=== PATIENT | female | born 1945 | race Caucasian/White ===

== ENCOUNTER 2018-05-06 17:16 | Inpatient (IN) | payer MEDICARE, OTHER ==
--- NOTE | 2018-05-06 18:28 | ED ---
General Adult HPI - General Chief complaint: Abdominal Pain Stated complaint: abd pain Time Seen by Provider: 05/06/18 17:16 Source: patient, EMS, RN notes reviewed, old records reviewed, Caregiver Mode of arrival: EMS Limitations: no limitations - History of Present Illness Initial comments: This is a 73-year-old female history of mental retardation who was seen at [facility] emergency department today with complaints of some chest discomfort. After workup that included lab work and CAT scan she was noted to have a likely left lower lobe pneumonia in addition to that a common bile duct with elevated bilirubin and liver enzymes. She was transferred here for higher level of care. Patient herself voices no complaints she is a poor historian. Information was gathered from lab work and charting was sent along with report from the paramedics brought the patient. - Related Data Home Medications Medication Instructions Recorded Confirmed Alendronate Sodium [Fosamax] 35 mg PO Q7D 05/06/18 05/06/18 Aspirin EC [Ecotrin Low Dose] 81 mg PO DAILY 05/06/18 05/06/18 Cholecalciferol [Vitamin D3] 1,000 unit PO DAILY 05/06/18 05/06/18 Cyanocobalamin (Vitamin B-12) 1,000 mcg PO DAILY 05/06/18 05/06/18 [Vitamin B-12] Levothyroxine Sodium [Synthroid] 50 mcg PO DAILY 05/06/18 05/06/18 Multivitamins, Thera [Multivitamin 1 tab PO DAILY 05/06/18 05/06/18 (formulary)] PARoxetine HCL [Paxil] 20 mg PO DAILY 05/06/18 05/06/18 Ursodiol [Actigall] 300 mg PO BID 05/06/18 05/06/18 Allergies Allergy/AdvReac Type Severity Reaction Status Date / Time No Known Allergies Allergy Verified 05/06/18 17:30 Review of Systems ROS Statement: Those systems with pertinent positive or pertinent negative responses have been documented in the HPI. ROS Other: All systems not noted in ROS Statement are negative. Limitations: ROS unobtainable due to patients medical condition Past Medical History Past Medical History: Hypertension, Liver Disease, Thyroid Disorder History of Any Multi-Drug Resistant Organisms: None Reported Additional Past Surgical History / Comment(s): cataract Past Psychological History: No Psychological Hx Reported Smoking Status: Never smoker Past Alcohol Use History: None Reported Past Drug Use History: None Reported General Exam - General Exam Comments Initial Comments: This is a well-developed asthenic appearing female who is awake alert. Limitations: no limitations General appearance: alert, in no apparent distress Head exam: Present: atraumatic, normocephalic, normal inspection Eye exam: Present: normal appearance, PERRL, EOMI. Absent: scleral icterus, conjunctival injection, periorbital swelling ENT exam: Present: normal exam, mucous membranes moist Neck exam: Present: normal inspection. Absent: tenderness, meningismus, lymphadenopathy Respiratory exam: Present: decreased breath sounds. Absent: respiratory distress, wheezes, rales, rhonchi, stridor Cardiovascular Exam: Present: normal rhythm, bradycardia, normal heart sounds. Absent: systolic murmur, diastolic murmur, rubs, gallop, clicks GI/Abdominal exam: Present: soft, normal bowel sounds. Absent: distended, tenderness, guarding, rebound, rigid Extremities exam: Present: normal inspection, full ROM, normal capillary refill. Absent: tenderness, pedal edema, joint swelling, calf tenderness Back exam: Present: normal inspection Neurological exam: Present: alert, oriented X3, CN II-XII intact Psychiatric exam: Present: normal affect, normal mood Skin exam: Present: warm, dry, intact, normal color. Absent: rash Course Vital Signs 05/06/18 05/06/18 05/06/18 17:22 17:25 18:00 Temperature 97.8 F Pulse Rate 56 L 87 Respiratory 16 16 Rate Blood Pressure 143/65 143/65 O2 Sat by Pulse 94 L 94 L 96 Oximetry Medical Decision Making - Medical Decision Making I did discuss findings with the caregiver as well as with Dr. Ansari. Patient be admitted consultation by GI. - Radiology Data Radiology results: report reviewed (I did review the imaging presented with the patient.), image reviewed Disposition Clinical Impression: Left lower lobe pneumonia, Bile duct obstruction Disposition: ADMITTED IP TO THIS [facility] Condition: Stable Referrals: Grey Dixon MD [Primary Care Provider] - 1-2 days
[2018-05-06] MEDS ORDERED: AZITHROMYCIN 500 MG in SODIUM CHLORIDE 0.9% 250 ML IVPB STA (18:43)
[2018-05-06] MEDS ORDERED: PNEUMONIA PROTOCOL UTILIZED 1 EACH MISC PO PRN (18:43)
[2018-05-06] MEDS ORDERED: ONDANSETRON 4 MG/2 ML VIAL IVP PRN (18:47)
[2018-05-06] MEDS ORDERED: HYDROmorphone 1 MG/ML 1 ML SYRINGE IVP PRN (18:47)
[2018-05-06] MEDS: SODIUM CHLORIDE 0.9% 1,000 ML IV SCH (20:10)
[2018-05-06] MEDS ORDERED: MELATONIN 3 MG TABLET PO PRN (22:59)
[2018-05-06] MEDS ORDERED: ACETAMINOPHEN TAB 325 MG TAB PO PRN (22:59)
[2018-05-06] MEDS ORDERED: LACTULOSE 20 GM/30 ML CUP PO PRN (22:59)
[2018-05-06] MEDS ORDERED: CALCIUM CARBONATE 500 MG CHEWABLE PO PRN (22:59)
[2018-05-06] MEDS ORDERED: MAGNESIUM HYDROXIDE 2,400 MG/10 ML CUP PO PRN (22:59)
[2018-05-06] MEDS ORDERED: ALPRAZolam 0.25 MG TAB PO PRN (22:59)
[2018-05-07] MEDS: URSODIOL 300 MG CAP PO SCH ×3 (00:16→20:05)
[2018-05-07] MEDS: SODIUM CHLORIDE 0.9% 1,000 ML IV SCH ×4 (01:48→23:08)
[2018-05-07] MEDS: LEVOTHYROXINE 50 MCG TAB PO SCH (05:36)
--- NOTE | 2018-05-07 05:44 | HP ---
HISTORY AND PHYSICAL DATE OF ADMISSION: 05/06/2018 DATE OF SERVICE: 05/06/2018 PRESENTING COMPLAINT: Short of breath HISTORY OF PRESENTING COMPLAINT: This is a 73-year-old patient of Visiting Physician, Dr. Dixon. Transferred here from [facility]. The patient is a very poor historian, very hard of hearing. The patient apparently had gone to her daycare and there she complained of some chest pain, some shortness of breath. No obvious abdominal pain. Chest x-ray showed questionable atelectasis versus infiltrate. Did have a CT scan of the abdomen that showed some gallstones and then dilated intrahepatic extrahepatic bile ducts and these changes also present in December of this year. EKG was sinus rhythm. AST and ALT was slightly elevated at 125 and 13. Total bilirubin was up at 2.3. The patient's white count was 10.7. The patient herself is a very poor historian, really cannot tell much. REVIEW OF SYSTEMS: CONSTITUTIONAL: Tired. HEENT: Poor hearing. RESPIRATORY: As above. Minimal cough, if any. CARDIOVASCULAR: None. GASTROINTESTINAL: None. GENITOURINARY: None. MUSCULOSKELETAL: Arthritic pain in the joints. DERMATOLOGICAL: None. HEMATOLOGIC: None. LYMPHATIC: None. PSYCHIATRY: Forgetful. NEUROLOGICAL: None reported. PAST MEDICAL HISTORY: Hypertension, liver disease, gallstones, hypothyroid. PAST SURGICAL HISTORY: Cataracts. SOCIAL HISTORY: She does not smoke or drink alcohol. Other history cannot be obtained. HOME MEDICATIONS: 1. Actigall 300 mg p.o. b.i.d. 2. Paxil 20 mg a day. 3. Multivitamin 1 tablet p.o. daily. 4. Synthroid 50 mcg a day. 5. Vitamin B12, 1000 mcg a day. 6. Vitamin D3, 1000 units p.o. daily. 7. Aspirin 81 mg a day. 8. Fosamax 35 mg every 7 days. ALLERGIES: None. PHYSICAL EXAMINATION: On examination, temperature 97.8, pulse 56, respirations 16, blood pressure 143/65 pulse ox 94% on room air. GENERAL APPEARANCE: Average build, lying in bed, comfortable. EYES: Pupils equal. Conjunctivae normal. HENT: External appearance of nose and ears normal. Oral cavity normal. NECK: JVD unable to assess. Mass not palpable. RESPIRATORY: Effort normal. LUNGS: Slightly decreased breath sounds. CARDIOVASCULAR: First and second sounds normal. No edema. ABDOMEN: Soft, nontender. Liver and spleen not palpable. LYMPHATIC: No lymph node palpable in the neck or axillae. PSYCHIATRY: Patient knows her name place. Really cannot answer too much, is very hard of hearing. NEUROLOGICAL: Pupils equal. Grossly intact. Power and sensation grossly intact. MUSCULOSKELETAL: Evidence of osteoarthritis especially in the hands and knees. INVESTIGATIONS: Blood work from [facility]: Chest x-ray reported left side atelectasis versus infiltrate. EKG was normal sinus rhythm. AST 125, ALT 113, total bilirubin 2.3. Lactic acid . Potassium 3.8. BUN 19, creatinine 0.7. White count 10.7, hemoglobin 12.5. ASSESSMENT: 1. Gallstones with dilated intra and extrahepatic ducts. The patient may require an ERCP. 2. Questionable left lower lobe infiltrate, possible pneumonia. Patient will be started on IV ceftriaxone. Home medications will be resumed. Will check patient's thyroid status to make sure she is not being over replaced. IV fluids are in place. We will try to reach family in the morning. MMODL / IJN: [id number] /
[2018-05-07] MEDS: MULTIVITAMINS, THERA 1 EACH TAB PO SCH (08:12)
[2018-05-07] MEDS: ENOXAPARIN 40 MG/0.4 ML SYRINGE SQ SCH (08:12)
[2018-05-07] MEDS: PARoxetine 20 MG TAB PO SCH (08:12)
[2018-05-07] MEDS: CYANOCOBALAMIN 500 MCG TAB PO SCH (08:12)
[2018-05-07] MEDS: ASPIRIN 81 MG PO SCH (08:12)
[2018-05-07 08:48] LABS: Basophils % (A) 0 %; Eosinophils # (A) 0.1 k/uL (0-0.7); Eosinophils % (A) 2 %; HCT 35.9 % (34.0-46.0); HGB 11.8 gm/dL (11.4-16.0); Lymphocytes # (A) 0.9 k/uL (1.0-4.8); Lymphocytes % (A) 19 %; MCH 31.5 pg (25.0-35.0); MCHC 32.9 g/dL (31.0-37.0); MCV 95.7 fL (80.0-100.0); Mean Platelet Volume 7.8; Monocytes # (A) 0.3 k/uL (0-1.0); Monocytes % (A) 6 %; Neutrophils # (A) 3.2 k/uL (1.3-7.7); Neutrophils % (A) 71 %; Platelet Count 232 k/uL (150-450); RBC 3.75 m/uL (3.80-5.40); RDW 13.4 % (11.5-15.5); WBC 4.5 k/uL (3.8-10.6)
[2018-05-07 08:51] LABS: Prothrombin Time 9.8 sec (9.0-12.0)
[2018-05-07 08:59] LABS: ALT 93 U/L (9-52); AST 68 U/L (14-36); Alkaline Phosphatase 205 U/L (38-126); Anion Gap 5 mmol/L; Blood Urea Nitrogen 15 mg/dL (7-17); Calcium 8.8 mg/dL (8.4-10.2); Carbon Dioxide 28 mmol/L (22-30); Chloride 109 mmol/L (98-107); Glucose 92 mg/dL (74-99); Potassium 3.8 mmol/L (3.5-5.1); Sodium 142 mmol/L (137-145); Total Bilirubin 0.9 mg/dL (0.2-1.3); Total Protein 5.6 g/dL (6.3-8.2)
--- NOTE | 2018-05-07 10:41 | P.CONS ---
History of Present Illness - Reason for Consult Consult date: 05/07/18 Dilated common bile duct Requesting physician: Chidi Ansari - Chief Complaint Shortness of breath - History of Present Illness 73-year-old female transferred from [facility] with shortness of breath chest pain possible pneumonia with a past medical history of cognitive impairment mentally challenged, the COPD. Consultation requested for dilated common bile duct. Chest x-ray reported left lower lobe atelectasis versus pneumonia. Patient denies abdominal pain. No emesis. Afebrile. CT imaging from [facility] reported a dilated intrahepatic duct as well as extra hepatic biliary dilatation. CBD is dilated extending to the head of the pancreas with air in the distal common bile duct consistent with stone. These findings are similar to exam performed in December 2017; however this must have been performed elsewhere no record of previous CTs seen when reviewing medical records from [facility]. White count 10. Hemoglobin 12.5. Platelet 253. LFTs upon transfer total bilirubin 2.3. AST 125. ALT 113. PT 2. INR 0.9. Lipase 20. Amylase 37. ProBNP 1360. LFTs improved today total bilirubin 0.9. AST 68. ALT 93. AP 205. CT Angio of the chest has been requested however will be completed tomorrow secondary to receiving IV contrast yesterday. Home medications reviewed patient is on Actigall 300 mg twice daily. Review of Systems Obtained from medical records Constitutional: Denies fever, chills, sweats, weight gain, or loss. Mentally challenged. HEENT: Negative for migraines, blurred vision or loss, earaches, drainage, tinnitus, oral mucosal lesions, dysphagia, or odynophagia. CARDIAC: Negative for chest pain, arrhythmias, or palpitation. RESPIRATORY: Admitted with shortness of breath, denies hemoptysis, cough, or sputum production. GI: See HPI for pertinent findings. : Negative for hematuria, urgency, frequency, polyuria, or dysuria. GYNc: Negative vaginal discharge. MUSCULOSKELETAL: Negative for muscle aches, swelling, arthritis, and arthralgias. NEUROLOGIC: Negative for stroke or TIA. ENDOCRINE: Negative for thyroid problems. SKIN: Negative for rash or itching. PSYCHIATRIC: Negative history for depression and anxiety ROS unobtainable: due to mental status Past Medical History Past Medical History: Hypertension, Liver Disease, Thyroid Disorder History of Any Multi-Drug Resistant Organisms: None Reported Additional Past Surgical History / Comment(s): cataract Additional Past Anesthesia/Blood Transfusion Reaction / Comm: Unable to assess. Legal Guardian unaware of much history Past Psychological History: No Psychological Hx Reported Additional Psychological History / Comment(s): Unable to assess. Smoking Status: Never smoker Past Alcohol Use History: None Reported Past Drug Use History: None Reported Medications and Allergies Home Medications Medication Instructions Recorded Confirmed Type Alendronate Sodium [Fosamax] 35 mg PO Q7D 05/06/18 05/06/18 History Aspirin EC [Ecotrin Low Dose] 81 mg PO DAILY 05/06/18 05/06/18 History Cholecalciferol [Vitamin D3] 1,000 unit PO DAILY 05/06/18 05/06/18 History Cyanocobalamin (Vitamin B-12) 1,000 mcg PO DAILY 05/06/18 05/06/18 History [Vitamin B-12] Levothyroxine Sodium [Synthroid] 50 mcg PO DAILY 05/06/18 05/06/18 History Multivitamins, Thera [Multivitamin 1 tab PO DAILY 05/06/18 05/06/18 History (formulary)] PARoxetine HCL [Paxil] 20 mg PO DAILY 05/06/18 05/06/18 History Ursodiol [Actigall] 300 mg PO BID 05/06/18 05/06/18 History Allergies Allergy/AdvReac Type Severity Reaction Status Date / Time No Known Allergies Allergy Verified 05/06/18 17:30 Physical Exam Vitals: Vital Signs Temp Pulse Pulse Resp BP BP Pulse Ox 05/07/18 07:26 97.8 F 56 L 18 134/74 94 L 05/07/18 07:00 97.8 F 60 18 145/79 95 05/06/18 20:30 97.9 F 59 L 18 112/63 98 05/06/18 20:00 68 18 138/71 96 05/06/18 19:10 55 L 16 138/71 97 05/06/18 19:00 133/80 96 05/06/18 18:00 87 16 143/65 96 05/06/18 17:25 94 L 05/06/18 17:22 97.8 F 56 L 16 143/65 94 L Intake and Output 05/06/18 05/07/18 05/07/18 22:59 06:59 14:59 Intake Total 0 0 Balance 0 0 Intake: Oral 0 0 Other: # Voids 1 1 Weight 44.679 kg 52.163 kg 52.163 kg General appearance: The patient is alert, in no acute distress. Hard of hearing. HET: Head is normocephalic and atraumatic. Pupils are equal and reactive. Oropharynx is clear without lesions. Neck: Supple without lymphadenopathy. Trachea midline. Heart: S1 S2. Regular rate and rhythm. Lungs: No crackles or wheezes are heard. Abdomen: Soft, nontender, nondistended with bowel sounds. No peritoneal signs. No palpable organomegaly or masses. Extremities: Normal skin color and turgor. No cyanosis, rash, ulceration, clubbing, or edema. Radial and pedal pulses are 2/4 bilaterally. Neurological: No focal deficits. Strength and sensation are grossly intact. Results CBC & Chem 7: 05/07/18 07:53 05/07/18 07:53 Labs: Abnormal Lab Results - Last 24 Hours (Table) 05/07/18 05/07/18 Range/Units 07:53 07:53 RBC 3.75 L (3.80-5.40) m/uL Lymphocytes # 0.9 L (1.0-4.8) k/uL Chloride 109 H (98-107) mmol/L AST 68 H (14-36) U/L ALT 93 H (9-52) U/L Alkaline Phosphatase 205 H (38-126) U/L Total Protein 5.6 L (6.3-8.2) g/dL Albumin 3.0 L (3.5-5.0) g/dL CT scan - abdomen: report reviewed (Stephan report reviewed by Dr. Gaona) Assessment and Plan (1) Bile duct obstruction Narrative/Plan: 73-year-old female transferred from [facility] with a suspected pneumonia receiving IV antibiotics with elevated liver enzymes CT imaging reporting extra and intrahepatic biliary duct dilatation with dilated common bile duct with foci of air and stone without abdominal pain. No evidence of cholangitis or sepsis. Current Visit: Yes Status: Acute Code(s): K83.1 - OBSTRUCTION OF BILE DUCT SNOMED Code(s): 45685330 (2) Elevated liver enzymes Narrative/Plan: Possible secondary to choledocholithiasis possible combination of passive venous congestion component with elevated pro-BNP prior to transfer. Current Visit: Yes Status: Acute Code(s): R74.8 - ABNORMAL LEVELS OF OTHER SERUM ENZYMES SNOMED Code(s): 087528522 (3) Mentally disabled Current Visit: Yes Status: Acute Code(s): F79 - UNSPECIFIED INTELLECTUAL DISABILITIES SNOMED Code(s): 260705046 (4) Left lower lobe pneumonia Current Visit: Yes Status: Acute Code(s): J18.1 - LOBAR PNEUMONIA, UNSPECIFIED ORGANISM SNOMED Code(s): 955548356 Plan: 1. ERCP tomorrow. Hold lovenox in am. Regular diet today. NPO after mn. 2. Hepatitis screen. CT angio has been requested and pending. 3. Continue IV antibiotics will add Flagyl secondary to CT findings. Thank you for this kind referral and the opportunity to participate in the care of your patient. This consultation was discussed with Dr. Gaona. The impression and plan of care have been directed as dictated.
--- NOTE | 2018-05-07 15:24 | CT ---
EXAMINATION TYPE: CT angio chest DATE OF EXAM: 05/07/2018 COMPARISON: Outside CT abdomen pelvis 05/06/2018 HISTORY: R/O PE CT DLP: 91.5 mGycm CONTRAST: CT chest with contrast and 3D reconstruction with MIP imaging is performed with IV Contrast, patient injected with 100 mL of Isovue 370. Contrast-enhanced CT of the chest was performed through the course of the pulmonary arteries with dilan g and mediastinal window settings submitted. 3D reconstruction with MIP imaging was also performed. PULMONARY ARTERIES: The pulmonary arteries and their major tributaries are patent. I do not see jewell dence for sizable filling defect to suggest pulmonary embolic process. LUNGS: No evidence for focal consolidation. Nonspecific scattered groundglass opacities noted may ref lect acute inflammatory process. No evidence for atelectasis. No pulmonary nodule or mass is detect ed. No pleural effusion. MEDIASTINUM: Thoracic aorta is of normal caliber,however, evaluation is limited given timing of the contrast bolus. If there is concern for thoracic aortic pathology consider MALGORZATA. Correlate clinicall y . The heart is not enlarged. No evidence for mediastinal mass. No mediastinal lymph nodes greater than 1cm. HILAR STRUCTURES: No evidence for mass. No hilar lymph nodes greater than 1 cm. UPPER ABDOMEN: Gallbladder and biliary abnormalities were described on a previous outside CT. IMPRESSION: 1. No evidence for Pulmonary embolism at this time.
[2018-05-07] MEDS: metroNIDAZOLE-NS PMX 500 MG in SALINE 1 100ML.BAG IVPB SCH ×2 (16:28→23:05)
--- NOTE | 2018-05-07 16:37 | XR ---
EXAMINATION TYPE: XR chest 2V DATE OF EXAM: 05/07/2018 COMPARISON: Chest x-ray 05/06/2018 from outside institution HISTORY: Shortness of breath TECHNIQUE: Frontal and lateral views of the chest are obtained. FINDINGS: Patient is rotated. Heart is enlarged. No pneumothorax or pleural effusion. Bandlike areas of increased attenuation in left midlung may reflect atelectasis or scar. Pulmonary vascularity and anh within normal limits. Calcification at the level of the insertion of the rotator cuff tendon may represent calcific tendinitis. Perihilar vascular indistinctness is present. IMPRESSION: Correlate to exclude pulmonary venous hypertension and early interstitial edema as noted on CT chest.
--- NOTE | 2018-05-07 17:51 | PN ---
PROGRESS NOTE DATE OF SERVICE: May 07, 2018. PRESENTING COMPLAINT: Possible abdominal pain. INTERVAL HISTORY: This patient was sent in for some abdominal pain, nonspecific with dilatation of the intra and extrahepatic bile duct and the pancreatic duct. The patient will be going down for the ERCP tomorrow. The patient has minimal respiratory symptoms only questionable pneumonia if any. The patient otherwise looks comfortable. Patient is very hard of hearing. REVIEW OF SYSTEMS: Done for constitutional, cardiovascular, GI, pulmonary; relevant findings as above. CURRENT MEDICATIONS: Include IV ceftriaxone and IV Flagyl. EXAMINATION: VITAL SIGNS: Afebrile, pulse 56, respiratory 18, blood pressure 130/74, pulse ox 94 percent on 2 L GENERAL APPEARANCE: Lying in bed, awake. EYES: Pupils equal. Conjunctivae normal. NECK: JVD not raised. Mass not palpable. RESPIRATORY: Effort normal. LUNGS: Slightly decreased breath sounds. CARDIOVASCULAR: 1st and 2nd sounds normal. No edema. ABDOMEN: Soft, nontender. Liver and spleen not palpable. PSYCHIATRY: Patient is able answer simple questions and she is very hard of hearing. INVESTIGATIONS: White count 4.5, potassium 3.8, AST 68 and ALT 93, total bilirubin 0.9. TSH is normal. Chest x-ray film, personally reviewed by me, no obvious infiltrate. Chest CTA negative for PE. ASSESSMENT: 1. Gallstones with dilated intra and extra hepatic ducts, likely leading to obstructive hepatitis and hyperbilirubinemia. 2. Possible left lower lobe pneumonia. The patient is on IV ceftriaxone. 3. Very hard of hearing. 4. Hypothyroid. PLAN: Keep the patient on antibiotics. Awaiting ERCP tomorrow, follow. MMODL / IJN: [id number] /
[2018-05-08] MEDS: LEVOTHYROXINE 50 MCG TAB PO SCH (05:28)
[2018-05-08] MEDS: ENOXAPARIN 40 MG/0.4 ML SYRINGE SQ SCH (07:00)
[2018-05-08] MEDS: metroNIDAZOLE-NS PMX 500 MG in SALINE 1 100ML.BAG IVPB SCH ×3 (08:37→22:51)
[2018-05-08] MEDS: CYANOCOBALAMIN 500 MCG TAB PO SCH (08:37)
[2018-05-08] MEDS: ASPIRIN 81 MG PO SCH (08:37)
[2018-05-08] MEDS: URSODIOL 300 MG CAP PO SCH ×2 (08:37→21:01)
[2018-05-08] MEDS: SODIUM CHLORIDE 0.9% 1,000 ML IV SCH ×2 (08:38→18:51)
[2018-05-08] MEDS: PARoxetine 20 MG TAB PO SCH (08:38)
[2018-05-08] MEDS: MULTIVITAMINS, THERA 1 EACH TAB PO SCH (11:17)
[2018-05-08 11:45] LABS: ALT 83 U/L (9-52); AST 49 U/L (14-36); Albumin 3.6 g/dL (3.5-5.0); Alkaline Phosphatase 210 U/L (38-126); Anion Gap 8 mmol/L; Blood Urea Nitrogen 10 mg/dL (7-17); Calcium 9.2 mg/dL (8.4-10.2); Carbon Dioxide 30 mmol/L (22-30); Chloride 103 mmol/L (98-107); Glucose 85 mg/dL (74-99); Potassium 3.9 mmol/L (3.5-5.1); Sodium 141 mmol/L (137-145); Total Bilirubin 0.9 mg/dL (0.2-1.3); Total Protein 6.5 g/dL (6.3-8.2)
[2018-05-08] MEDS ORDERED: INDOMETHACIN 50MG SUPPOSITORY RECTAL ONE (12:00)
[2018-05-08] MEDS ORDERED: IV FLUID CONTINUATION 1,000 ML IV ONE (12:48)
[2018-05-08] MEDS ORDERED: KETAMINE 10 MG/ML 20 ML VIAL ONE (13:02)
[2018-05-08] MEDS ORDERED: GLYCOPYRROLATE 0.2 MG/ML 2 ML VIAL ONE (13:02)
[2018-05-08] MEDS ORDERED: PROPOFOL 10 MG/ML 20 ML VIAL IV ONE (13:02)
[2018-05-08] MEDS ORDERED: LABETALOL 5 MG/ML VIAL MDV ONE (13:02)
[2018-05-08] MEDS ORDERED: LACTATED RINGERS 1,000 ML IV ONE (14:25)
[2018-05-08] MEDS ORDERED: IOPAMIDOL-300 50ML BTL MISCELLANE ONE (14:40)
--- NOTE | 2018-05-08 17:00 | FL ---
Fluoroscopy HISTORY: Biliary dilation, bile duct stone 8 minutes 17 seconds fluoroscopy time supplied to the referring clinician. 3 intraoperative C-arm im ages document the procedure. See dictated report from gastroenterology.
[2018-05-08 17:36] LABS: Hepatitis A Antibody IgM Non-Reactive (Non-Reactive); Hepatitis B Core IgM Non-Reactive (Non-Reactive)
--- NOTE | 2018-05-08 18:19 | PN ---
PROGRESS NOTE DATE OF SERVICE: 05/08/2018 PRESENTING COMPLAINT: Abdominal pain. INTERVAL HISTORY: This patient was sent in for abdominal pain, nonspecific, with dilatation of the intra- and extrahepatic bile duct and pancreatic duct. Patient was seen by me this morning; due for ERCP this afternoon. The patient denies any abdominal pain today. No respiratory symptoms. The patient also was treated for pneumonia based on initial presentation. REVIEW OF SYSTEMS: Review of systems was attempted for constitutional, cardiovascular, GI, pulmonary; relevant findings as above. CURRENT MEDICATIONS: Reviewed. They include IV ceftriaxone and IV Flagyl. PHYSICAL EXAMINATION: Temperature 98.1, pulse 62, respiration 14, blood pressure 163/73, pulse ox 95% on room air. GENERAL APPEARANCE: Lying in bed, awake. EYES: Pupils equal. Conjunctivae normal. HEENT: External appearance of nose and ears normal. Oral cavity dry. Decreased hearing. NECK: JVD not raised. Mass not palpable. RESPIRATORY: Effort normal. LUNGS: Slightly decreased breath sounds. CARDIOVASCULAR: First and second sounds normal. No edema. ABDOMEN: Soft, non-tender. Liver and spleen not palpable. PSYCHIATRY: Patient is very hard of hearing. Able to answer some very simple questions. INVESTIGATIONS: Potassium 3.9, AST 49, ALT 83. Patient's hepatitis screen is negative. ASSESSMENT: 1. Gallstones with dilated intra- and extrahepatic bile duct leading to obstructive hepatitis. 2. Hyperbilirubinemia on presentation, now awaiting ERCP. 3. Possible left lower lobe pneumonia. Patient is on IV ceftriaxone. Clinically looks much improved. 4. Very hard of hearing. 5. Hypothyroid. PLAN: Continue current medication and treatment plan. Awaiting ERCP today. MMODL / IJN: [id number] /
--- NOTE | 2018-05-08 22:23 | P.PCN ---
Date of Procedure: 05/08/18 Description of Procedure: Brief history: Patient is a 73 year-old pleasant female with a medical history significant for hypertension, thyroid disorder and developmental delay who presented from [facility] for treatment. The patient had imaging with a computed tomography scan which showed choledocholithiasis and was scheduled for an ERCP for treatment. Endoscopists: Dr. Fiorella Flores, Dr. Nav Gaona Procedure performed: ERCP with sphincterotomy, balloon sweep and stent placement Preoperative diagnoses: Choledocholithiasis IV sedation per anesthesia Procedure: After informed consent was obtained from the patient and after the risks benefits and complications including bleeding perforation and pancreatitis explained in detail to the patient and her DOA and she was brought into the endoscopy unit. The patient was placed in prone position and IV conscious sedation was administered by anesthesia under continuous monitoring. The Olympus side-viewing duodenoscope was then inserted into the mouth and esophagus intubated without any difficulty. The scope was gradually advanced into the stomach and duodenum. The major papilla was identified without any difficulty. Cannulation was achieved and a guidewire passed. A cholangiogram was performed and was significant for a large distal CBD stone and diffuse CBD dilation. The patient then had a 13 mm sphincterotomy made with a sphincterotome. Multiple attempts were made at removing the stone with balloon sweep, however this was productive only of debris. A 7-Maltese X 5 centimeter double pigtail plastic stent was then placed. This was confirmed by x-ray. The scope was then removed with suctioning of excess air in the stomach. The patient tolerated the procedure well. Impression: 1. Choledocholithiasis 2. Sphincterotomy with balloon sweep and stent placement Recommendations: The findings of this examination were discussed with the patient and the medical team. Patient was sent back to the floor for further care. Okay for liquids today, advance diet as tolerated. Monitor liver enzymes. Continue Actigall. Patient will need to follow up in 6-8 weeks for stent removal. Monitor for signs and symptoms of pancreatitis.
[2018-05-09] MEDS: SODIUM CHLORIDE 0.9% 1,000 ML IV SCH ×2 (03:22→12:25)
[2018-05-09 06:21] VITALS: RESP 16; TEMP 98.5
[2018-05-09] MEDS: LEVOTHYROXINE 50 MCG TAB PO SCH (06:32)
[2018-05-09] MEDS: ASPIRIN 81 MG PO SCH (08:32)
[2018-05-09] MEDS: PARoxetine 20 MG TAB PO SCH (08:32)
[2018-05-09] MEDS: ENOXAPARIN 40 MG/0.4 ML SYRINGE SQ SCH (08:32)
[2018-05-09] MEDS: CYANOCOBALAMIN 500 MCG TAB PO SCH (08:32)
[2018-05-09] MEDS: MULTIVITAMINS, THERA 1 EACH TAB PO SCH (08:32)
[2018-05-09] MEDS: URSODIOL 300 MG CAP PO SCH (08:32)
[2018-05-09] MEDS: metroNIDAZOLE-NS PMX 500 MG in SALINE 1 100ML.BAG IVPB SCH (08:32)
[2018-05-09 08:45] LABS: Basophils % (A) 0 %; Eosinophils # (A) 0.1 k/uL (0-0.7); Eosinophils % (A) 1 %; HCT 36.9 % (34.0-46.0); HGB 12.3 gm/dL (11.4-16.0); Lymphocytes # (A) 1.1 k/uL (1.0-4.8); Lymphocytes % (A) 22 %; MCH 31.1 pg (25.0-35.0); MCHC 33.2 g/dL (31.0-37.0); MCV 93.5 fL (80.0-100.0); Mean Platelet Volume 6.9; Monocytes # (A) 0.2 k/uL (0-1.0); Monocytes % (A) 5 %; Neutrophils # (A) 3.4 k/uL (1.3-7.7); Neutrophils % (A) 70 %; Platelet Count 318 k/uL (150-450); RBC 3.94 m/uL (3.80-5.40); RDW 12.9 % (11.5-15.5); WBC 4.8 k/uL (3.8-10.6)
[2018-05-09 08:54] LABS: ALT 61 U/L (9-52); AST 35 U/L (14-36); Albumin 3.1 g/dL (3.5-5.0); Alkaline Phosphatase 170 U/L (38-126); Anion Gap 9 mmol/L; Blood Urea Nitrogen 13 mg/dL (7-17); Calcium 8.9 mg/dL (8.4-10.2); Carbon Dioxide 28 mmol/L (22-30); Chloride 103 mmol/L (98-107); Glucose 116 mg/dL (74-99); Potassium 3.5 mmol/L (3.5-5.1); Sodium 140 mmol/L (137-145); Total Bilirubin 0.9 mg/dL (0.2-1.3); Total Protein 5.7 g/dL (6.3-8.2)
--- NOTE | 2018-05-09 09:50 | PN ---
PROGRESS NOTE DATE OF SERVICE: May 09, 2018 Patient is a 74-year-old pleasant white female admitted to the hospital with possible UTI. Subsequently, had a CT of the abdomen done that showed a stone in the common bile duct. She underwent an ERCP by Dr. Gaona yesterday which showed a dilated common bile duct with a large stone in the proximal CBD. Attempts at removing the stone was unsuccessful. Hence, she had a ERCP with CBD stent placement. The patient is doing well this morning. She denies any symptoms. She reports no abdominal pain. No nausea, vomiting. On a clear liquid diet tolerating well. PHYSICAL EXAMINATION: She appears comfortable. No apparent distress. VITAL SIGNS: Stable. Blood pressure is 149/78, pulse rate 58, temperature 98. HEENT examination unremarkable. Conjunctivae pink. Sclerae anicteric. Oral cavity no lesions. Neck: No jugular venous distention or lymph node enlargement. Chest was clear to auscultation. HEART: Regular rate and rhythm. ABDOMEN: Soft. Bowel sounds are positive. No organomegaly. Extremities: No pedal edema. Skin no rashes. NEUROLOGIC: Alert and oriented x3. No focal deficits. LABS: From today AST 35, ALT 61, alkaline phosphatase 170. T-bilirubin 0.9. IMPRESSION: 1. Choledocholithiasis status post ERCP with attempted CBD stone yesterday but unsuccessful. Status post CBD stent placement. LFTs are improving. 2. Urinary tract infection on antibiotics. RECOMMENDATIONS: 1. Advance diet as tolerated. 2. We will start her on Actigall 300 mg twice daily. 3. The patient can be discharged home with outpatient follow up with Dr. Gaona in 2 weeks. MMODL / IJN: [id number] /
[2018-05-09 14:58] VITALS: BP 157/68; PULSE 68
[2018-05-09] MEDS ORDERED: metroNIDAZOLE 500 MG TAB PO SCH (16:00)
[2018-05-09] MEDS ORDERED: URSODIOL 300 MG CAP PO SCH (17:30)
--- NOTE | 2018-05-10 08:57 | DS ---
DISCHARGE SUMMARY DATE OF ADMISSION: May 06, 2018. DATE OF DISCHARGE: May 09, 2018. FINAL DIAGNOSES: 1. Gallstone in the common bile duct leading to obstructive hepatitis. 2. Hyperbilirubinemia. 3. Left lower lobe pneumonia. 4. Very hard of hearing. 5. Hypothyroid. HOSPITAL COURSE: This patient presented with abdominal pain with intra and extrahepatic biliary dilatation. ERCP was done. There was a CBD stone that could not be extracted. Hence a biliary stent was placed by Dr. Gaona. Next morning, patient is doing well. No abdominal pain. PHYSICAL EXAMINATION: Temperature 98.5, pulse 65, respiration 16, blood pressure 120/68. ABDOMEN: Soft, nontender. Patient is very hard of hearing. LABS: White count 4.8, hemoglobin 12.3, AST 35, ALT 61, total bilirubin 0.9. CONSULTATION: Dr. Gaona from GI who also did ERCP with CBD stent placement. The patient has no further respiratory symptoms. DISCHARGE MEDICATIONS: 1. Aspirin 81 mg a day. 2. Vitamin B12 1000 mcg a day. 3. Synthroid 50 mcg a day. 4. Multivitamin tab p.o. daily. 5. Paxil 20 mg p.o. daily. 6. Actigall 10 mg p.o. b.i.d. 7. Antibiotics dose completed. FOLLOWUP: With Visiting Physician, Dr. Dixon in 1 week. Follow up with Dr. Gaona 2 weeks. MMODL / IJN: [id number] /
== END 2018-05-09 15:57 | disposition home or self-care (01) | DRG 444 ==
LOC: EC 17:16 → EEVIPCON 17:16 → 4MS4W 18:43
PROVIDERS: ADMIT Hospitalist; ATTEND Hospitalist
PROC: 0FC98ZZ Extirpation of Matter from Common Bile Duct, Via Natural or Artificial Opening Endoscopic (ICD-10-PCS; principal; 2018-05-08 07:30)
PROC: 0F798DZ Dilation of Common Bile Duct with Intraluminal Device, Via Natural or Artificial Opening Endoscopic (ICD-10-PCS; 2018-05-08 07:30)
DX: K80.51 Calculus of bile duct without cholangitis or cholecystitis with obstruction (principal); J18.9 Pneumonia, unspecified organism; J44.0 Chronic obstructive pulmonary disease with (acute) lower respiratory infection; E03.9 Hypothyroidism, unspecified; H91.90 Unspecified hearing loss, unspecified ear; I10 Essential (primary) hypertension; M17.0 Bilateral primary osteoarthritis of knee; M19.041 Primary osteoarthritis, right hand; M19.042 Primary osteoarthritis, left hand; K75.89 Other specified inflammatory liver diseases; K83.8 Other specified diseases of biliary tract; F79 Unspecified intellectual disabilities; R62.50 Unspecified lack of expected normal physiological development in childhood; Z79.82 Long term (current) use of aspirin; Z79.83 Long term (current) use of bisphosphonates; Z79.890 Hormone replacement therapy; Z79.899 Other long term (current) drug therapy
CPT/HCPCS: 43262; 43274; 71046; 71275; 74330; 80053; 80074; 84443; 85025; 85610; 96365; 99285